=== PATIENT | female | born 1940 | race Caucasian/White ===

== ENCOUNTER 2017-11-12 14:19 | Inpatient (IN) | payer MEDICARE, BC ==
[~2017-11-12] VITALS: Ht 162.6 cm; Wt 54.5 kg
--- NOTE | ~2017-11-12 | PN ---
PATIENT:TIANA ROJO MEDICAL RECORD: [id number] LOCATION:[facility] ADMISSION DATE: 11/12/17 PROGRESS NOTE DATE OF SERVICE: 11/18/2017 SUBJECTIVE: The patient's case was discussed with staff. She has no new complaint. OBJECTIVE: The patient is very anxious. She is visibly trembling when I speak with her. She has limited insight about her condition and is not eating very well. ASSESSMENT: No change in diagnoses. PLAN: I did start the patient on Ativan on a scheduled basis to help with her anxiety yesterday. I do not know that it has had an opportunity to show much affect. I am also going to start her today on some Megace to help with appetite stimulation. TRANSINT:[id number] Voice Confirmation ID: [id number] DOCUMENT ID: [id number] JHOANA HASKINS MD at 0822 CC: [id number] DICTATION DATE: 11/18/17 1153 BITUMINOUS PAVING MACHINE OPERATOR: 11/18/17 1211 ADM IN [place] [id number] [place] [address]
--- NOTE | ~2017-11-12 | PN ---
PATIENT:TIANA ROJO MEDICAL RECORD: [id number] LOCATION:[facility] ADMISSION DATE: 11/12/17 PROGRESS NOTE DATE OF SERVICE: 11/21/2017 SUBJECTIVE: No new complaint. OBJECTIVE: The patient is wandering somewhat less. She is more redirectable. She is tolerating medications without difficulty. On exam, mood is for the most part euthymic. Affect is fairly flat. Speech is terse. Content of thought is negative for overt psychosis. Sensorium shows no change. ASSESSMENT: No change in diagnosis. PLAN: 1. Continue current medication. 2. Continue supportive therapy. TRANSINT:[id number] Voice Confirmation ID: [id number] DOCUMENT ID: [id number] LEON CARDENAS III, MD at 2123 CC: [id number] DICTATION DATE: 11/21/17 1234 WHEAT SHIPPER: 11/21/17 1425 ADM IN [place] [id number] [place] [address]
--- NOTE | ~2017-11-12 | PN ---
PATIENT:TIANA ROJO MEDICAL RECORD: [id number] LOCATION:[facility] [address] ADMISSION DATE: 11/12/17 PROGRESS NOTE DATE OF SERVICE: 11/15/2017 SUBJECTIVE: No new complaint. OBJECTIVE: Staff report the patient remains extremely anxious and paranoid. She has heightened startle response. She attempted to elope last night, but was brought back. She did require p.r.n. of Klonopin twice. She slept less than 1 hour. On exam, mood remains anxious, although the patient is somewhat more subdued. Speech is tangential. Content of thought shows nonspecific paranoid ideation. Sensorium shows no change. ASSESSMENT: No change in diagnosis. PLAN: 1. Begin perphenazine 2 mg twice a day. 2. Continue other current medication. 3. Continue supportive therapy. TRANSINT:[id number] Voice Confirmation ID: [id number] DOCUMENT ID: [id number] LEON CARDENAS III, MD at 0932 CC: [id number] DICTATION DATE: 11/15/17 1109 ASSISTANT WOMEN'S BASKETBALL COACH: 11/15/17 1347 ADM IN [facility] [address] [place] [address]
--- NOTE | ~2017-11-12 | PN ---
PATIENT:TIANA ROJO MEDICAL RECORD: [id number] LOCATION:[facility] ADMISSION DATE: 11/12/17 PROGRESS NOTE DATE OF SERVICE: 11/22/2017 SUBJECTIVE: No new complaint offered. OBJECTIVE: The patient is very pleasant on approach. She continues to socialize fairly well with other patients. She did sleep better last night and is somewhat more cooperative regarding medication. On exam, mood is pleasant. Affect is shallow. Speech is terse. Content of thought is negative for overt psychosis. Sensorium is unchanged. ASSESSMENT: No change in diagnosis. PLAN: 1. Continue current medication. 2. Continue supportive therapy. TRANSINT:[id number] Voice Confirmation ID: [id number] DOCUMENT ID: [id number] LEON CARDENAS III, MD at 2048 CC: [id number] DICTATION DATE: 11/22/17 1141 DELIVERY CREW MEMBER: 11/22/17 1304 ADM IN [place] [address] [place] [address]
--- NOTE | ~2017-11-12 | PN ---
PATIENT:TIANA ROJO MEDICAL RECORD: [id number] LOCATION:[facility] [address] ADMISSION DATE: 11/12/17 PROGRESS NOTE DATE OF SERVICE: 11/20/2017 SUBJECTIVE: No new complaint. OBJECTIVE: The patient has overall been cooperative from time to time. She refuses meds. She is quite confused and does startle easily. On exam, mood anxious. Affect is brittle. Speech is tangential. Content of thought exhibits nonspecific paranoid ideation. Sensorium shows no change. ASSESSMENT: No change in diagnosis. PLAN: 1. Maintain current medication. 2. Continue supportive therapy. TRANSINT:[id number] Voice Confirmation ID: [id number] DOCUMENT ID: [id number] LEON CARDENAS III, MD at 0435 CC: [id number] DICTATION DATE: 11/20/17 1157 RETAIL STOCKER: 11/20/17 1221 ADM IN [place] [id number] [place] [address]
--- NOTE | ~2017-11-12 | DS ---
PATIENT:TIANA ROJO :40 MEDICAL RECORD: [id number] DISCHARGE SUMMARY ADMISSION DATE: 11/12/17 DISCHARGE DATE: 11/29/17 DATE OF ADMISSION: 11/12/2017 DATE OF DISCHARGE: 11/29/2017 HISTORY OF PRESENT ILLNESS: First long term admission for this 77-year-old white female. The patient had been picked up by police. She had wandered away from her home and had claimed that her was trying to harm her. The patient was taken to the Emergency Department at [facility] and then transferred here. The patient had a preexisting diagnosis of dementia. For further details, please see previously dictated history. COURSE IN THE HOSPITAL: The patient was seen in consultation by Dr. Diehl. Dr. Diehl noted the presence of hypertension, hyperlipidemia, and hypothyroidism, a recent urinary tract infection, hyperglycemia and COPD. The patient was treated with lorazepam 0.25 mg t.i.d. for control of anxiety. She was placed on Aricept 10 mg at bedtime for her dementing symptoms. She was also given perphenazine 2 mg b.i.d. to control agitation and psychotic symptoms. Beyond this, she was given supplements of vitamin D and B12. In addition, she was maintained on Tenormin 25 mg daily, levothyroxine 100 mcg daily, aspirin 81 mg daily, and K-Dur 20 mEq daily. Over the course of the hospitalization, the patient showed good improvement. She continued to show evidence of very significant dementia. Her elected to have her return home, but family will be involved in monitoring her. 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 AXIS II: No diagnosis. AXIS III: Hypertension, hyperlipidemia, hypothyroidism, urinary tract infection, and chronic obstructive pulmonary disease. AXIS IV: Moderate. AXIS V: 38. PLAN: 1. The patient is discharged on current medication. 2. The patient's has been strongly cautioned about the patient's sensorium deficits and the need to keep continuous monitoring available. 3. She will follow up with her snuff packing machine operator. TRANSINT:[id number] Voice Confirmation ID: [id number] DOCUMENT ID: [id number] LEON CARDENAS III, MD at 1015 CC: [id number] DICTATION DATE: 11/29/17 1107 BOX MACHINE OPERATOR: 11/30/17 0840 DIS IN 11/29/17 [facility] [address] [facility]901
--- NOTE | ~2017-11-12 | PN ---
PATIENT:TIANA ROJO MEDICAL RECORD: [id number] LOCATION:[facility] Mckeon ADMISSION DATE: 11/12/17 PROGRESS NOTE DATE OF SERVICE: 11/23/2017 SUBJECTIVE: The patient states "I just don't feel right." OBJECTIVE: Overall, the patient is better. She is interacting better with staff and to some extent even with other clients. However, she continues to have a great deal of baseline anxiety and somatization. On exam, mood is anxious. Affect is somewhat brittle. Speech is repetitive. Content of thought focuses on somatic concerns. Sensorium shows no change. ASSESSMENT: No change in diagnosis. PLAN: 1. Continue current medication. 2. Continue supportive therapy. TRANSINT:[id number] Voice Confirmation ID: [id number] DOCUMENT ID: [id number] LEON CARDENAS III, MD at 0948 CC: [id number] DICTATION DATE: 11/23/17 1203 TYPING BOOKKEEPER: 11/23/17 1228 ADM IN [place] [address] [place] [address]
--- NOTE | ~2017-11-12 | PN ---
PATIENT:TIANA ROJO MEDICAL RECORD: [id number] LOCATION:[facility]112 ADMISSION DATE: 11/12/17 PROGRESS NOTE DATE OF SERVICE: 11/27/2017 SUBJECTIVE: No new complaint noted. OBJECTIVE: The patient is doing fairly well. She is tolerating medications. On exam, mood is slightly anxious. Affect is overall bland. Speech is tangential. Content of thought is negative for overt psychosis. Sensorium is unchanged. ASSESSMENT: No change in diagnosis. PLAN: 1. Continue current medication. 2. Continue supportive therapy. TRANSINT:[id number] Voice Confirmation ID: [id number] DOCUMENT ID: [id number] LEON CARDENAS III, MD at 0828 CC: [id number] DICTATION DATE: 11/27/17 1202 SOLAR MANUFACTURER'S REPRESENTATIVE: 11/27/17 1235 ADM IN [place] [id number] [place] [address]
--- NOTE | ~2017-11-12 | PN ---
PATIENT:TIANA ROJO MEDICAL RECORD: [id number] LOCATION:[facility] ADMISSION DATE: 11/12/17 PROGRESS NOTE DATE OF SERVICE: 11/28/2017 SUBJECTIVE: No new complaint. OBJECTIVE: The patient has been occasionally anxious, but overall is doing much better. On exam, mood is slightly anxious. Affect is shallow. Speech is repetitive. Content of thought focuses on somatic concerns. Sensorium does not show change. ASSESSMENT: No change in diagnosis. PLAN: 1. Continue all current medication. 2. Anticipate discharge tomorrow. TRANSINT:[id number] Voice Confirmation ID: [id number] DOCUMENT ID: [id number] LEON CARDENAS III, MD at 1026 CC: [id number] DICTATION DATE: 11/28/17 1107 BOX BLANK MACHINE FEEDER: 11/28/17 1207 ADM IN [place] [address] [place] [address]
--- NOTE | ~2017-11-12 | PN ---
PATIENT:TIANA ROJO MEDICAL RECORD: [id number] LOCATION:[facility] [address] ADMISSION DATE: 11/12/17 PROGRESS NOTE DATE OF SERVICE: 11/17/2017 SUBJECTIVE: The patient's case was discussed with staff. She has no new complaint. OBJECTIVE: The patient denies intent to harm herself or others. She is extremely anxious. She thinks that I am her and wants me to take her home. She earlier today was actively hallucinating children in the hallway. ASSESSMENT: No change in diagnoses. PLAN: Brief supportive and educational interventions were made. Long-term prognosis is guarded. TRANSINT:[id number] Voice Confirmation ID: [id number] DOCUMENT ID: [id number] JHOANA HASKINS MD at 1936 CC: [id number] DICTATION DATE: 11/17/17 1434 NURSERY NURSE: 11/17/17 1500 ADM IN [place] [address] [place] [address]
--- NOTE | ~2017-11-12 | PN ---
PATIENT:TIANA ROJO MEDICAL RECORD: [id number] LOCATION:SOWMYA Mckeon ADMISSION DATE: 11/12/17 PROGRESS NOTE DATE OF SERVICE: 11/16/2017 SUBJECTIVE: No new complaint. OBJECTIVE: The patient did sleep a little bit better last night. She slept 2-1/2 hours. She continues to have episodes of significant anxiety. Eating has improved. On exam, mood is anxious. Affect is shallow. Speech is tangential. Content of thought negative for overt psychosis. Sensorium shows no change. ASSESSMENT: No change in diagnosis. PLAN: 1. Advance Aricept to 10 mg at bedtime. 2. Discontinue Klonopin. 3. Change to p.r.n. Ativan 0.5 mg every four hours as needed. 4. Continue supportive therapy. TRANSINT:[id number] Voice Confirmation ID: [id number] DOCUMENT ID: [id number] LEON CARDENAS III, MD at 0932 CC: [id number] DICTATION DATE: 11/16/17 1059 IMAGING TECH: 11/16/17 1220 ADM IN [facility] [address] [place] [address]
--- NOTE | ~2017-11-12 | PSY ---
PATIENT NAME:TIANA ROJO MEDICAL RECORD: [id number] : 40 LOCATION:WangMAYRA Mckeon3 ADMISSION DATE: 11/12/17 ACCOUNT: [id number] PSYCHIATRIC EVALUATION DATE OF EVALUATION: 11/13/17 IDENTIFYING DATA: This is the first [facility] admission for this 77-year-old white female. HISTORY OF PRESENT ILLNESS: This patient was accepted on transfer from the [facility] Emergency Department. She had been picked up by the police. The patient had wandered outside of her home and had stopped a delivery truck claiming that her was trying to harm her. Law enforcement did investigate and ascertained that there was no history of abuse; however, the patient does have a past history of dementia. The patient has been evidently treated for dementia in the past. She does continue to live with the . The accompanied the patient to [facility] and did request admission. Following the admission, the patient has been for the most part cooperative, but remains quite frightened and exhibits generalized paranoia. PAST MEDICAL HISTORY: Positive for recent urinary tract infection, currently being treated with Keflex 500 mg twice a day. The patient also has a history of hypertension and hypothyroidism. MEDICATIONS AT THE TIME OF ADMISSION: Included K-Dur, Tenormin, aspirin, levothyroxine, Klonopin, and cephalexin. FAMILY HISTORY: Noncontributory. SOCIAL HISTORY: See above. The patient does have family involved in her care. There are no known substance abuse issues. ALLERGIES: None listed. PHYSICAL EXAMINATION: On exam, the patient appears frightened and is occasionally tearful. Affect is somewhat brittle. Speech is tangential. The patient has very frequent word finding pauses and word substitution. Content of thought is positive for paranoid delusional ideation. Sensorium testing reveals the patient is oriented to person, but not as to place nor time. Remote, intermediate, and short-term recall are all impaired. DIAGNOSTIC IMPRESSION: AXIS I: Alzheimer dementia with behavioral disturbance. AXIS II: No diagnosis. AXIS III: Hypothyroidism, hypertension, and urinary tract infection. AXIS IV: Severe. AXIS V: 38. PLAN: 1. The patient is admitted for further medical and psychiatric workup. 2. Diet and activities as tolerated. 3. Coordinate with family regarding aftercare. TRANSINT:[id number] Voice Confirmation ID: [id number] DOCUMENT ID: [id number] LEON CARDENAS III, MD at 0810 CC: [id number] DICTATION DATE: 11/13/17 1158 AERIAL PLANTING AND CULTIVATION MANAGER: 11/13/17 1218 ADM IN [facility] [address] [place] [id number]
--- NOTE | ~2017-11-12 | PN ---
PATIENT:TIANA ROJO MEDICAL RECORD: [id number] LOCATION:SWOMYA [address] ADMISSION DATE: 11/12/17 PROGRESS NOTE DATE OF SERVICE: 11/14/2017 SUBJECTIVE: No coherent complaint. OBJECTIVE: The patient slept only 1 hour last night. She remains extremely confused and delusional. She exhibits paranoid ideation. On exam today, the patient shows a great deal of word searching and latency. Mood is anxious. Affect is shallow. Content of thought as noted above. Sensorium is unchanged. ASSESSMENT: No change in diagnoses. PLAN: 1. Continue current treatment plan. 2. Continue supportive therapy. TRANSINT:[id number] Voice Confirmation ID: [id number] DOCUMENT ID: [id number] LEON CARDENAS III, MD at 0601 CC: [id number] DICTATION DATE: 11/14/17 1105 DOCTOR OF AUDIOLOGY: 11/14/17 1221 ADM IN [place] [id number] [place] [address]
--- NOTE | ~2017-11-12 | PN ---
PATIENT:TIANA ROJO MEDICAL RECORD: [id number] LOCATION:SOWMYA Pi[facility]ildred112 ADMISSION DATE: 11/12/17 PROGRESS NOTE DATE OF SERVICE: 11/24/2017 SUBJECTIVE: No new complaint. OBJECTIVE: The patient had a good family visit yesterday, although she did become tearful. Family is in the process of developing alternative plans for aftercare. She may well be directed toward either assisted living or shelter. On exam, mood is for the most part euthymic, although slightly anxious at times. Affect is childlike. Speech tends to be repetitive. Content of thought is focused mainly on vague nonspecific fears about the future. Sensorium shows no change. ASSESSMENT: No change in diagnosis. PLAN: 1. Maintain current medication. 2. Continue supportive therapy. TRANSINT:[id number] Voice Confirmation ID: [id number] DOCUMENT ID: [id number] LEON CARDENAS III, MD at 0535 CC: [id number] DICTATION DATE: 11/24/17 1119 WHOLESALE LOAN PROCESSOR: 11/24/17 1324 ADM IN [place] [address] [place] [id number]
[2017-11-12 19:47] VITALS: BP 128/78
[2017-11-13] MEDS ORDERED: KEFLEX500 MG PO (00:44)
[2017-11-13] MEDS ORDERED: KLONOPIN0.5 MG PO (00:45)
[2017-11-13] MEDS ORDERED: K-DUR20 MEQ PO (00:46)
[2017-11-13] MEDS ORDERED: SYNTHROID100 MCG PO (00:47)
[2017-11-13] MEDS ORDERED: BAYER CHEWABLE81 MG PO (00:48)
[2017-11-13] MEDS ORDERED: TENORMIN25 MG PO (00:50)
[2017-11-13 05:19] VITALS: BP 128/78
[2017-11-13 05:58] LABS: BASOPHILS 0.6 % (0-2); EOSINOPHILS 2.8 % (0-7); HEMATOCRIT 46.9 % (36.0-48.0); HEMOGLOBIN 15.4 g/dL (12-16); IMMATURE GRANULOCYTES 0.1 % (0-5); LYMPHOCYTES 29.2 % (15-50); MCHC 32.8 g/dL (31.0-37.0); MCV 85.3 fL (80.0-100.0); MEAN PLATELET VOLUME 11.1 fL (7.4-10.4); MONOCYTES 8.9 % (2-11); NEUTROPHILS 58.4 % (40-80); PLATELET COUNT 166 10x3/uL (130-400); RDW 13.5 % (11.5-14.5); WBC 6.7 10x3/uL (4.8-10.8)
[2017-11-13 07:00] VITALS: BP 148/73
[2017-11-13 07:01] LABS: ALBUMIN 3.7 g/dL (3.4-5.0); ANION GAP 15.3 mmol/L (8-16); BILIRUBIN - TOTAL 1.27 mg/dL (0.2-1.3); CALCIUM 9.1 mg/dL (8.5-10.1); CARBON DIOXIDE 24.8 mmol/L (21.0-32.0); CHOL - HDL RATIO 3.8 ratio (2.3-4.1); CREATININE - SERUM 0.8 mg/dL (0.6-1.3); LDL-HDL RATIO 2.3 ratio (1.5-3.5); POTASSIUM - SERUM 4.1 mmol/L (3.5-5.1); PROTEIN - SERUM 7.7 g/dL (6.4-8.2); THYROID STIMULATING HORMONE 0.06 uIU/mL (0.36-3.74)
[2017-11-13 14:53] LABS: APPEARANCE SLT CLOUDY (CLEAR); BILIRUBIN NEGATIVE (NEGATIVE); COLOR YELLOW (YELLOW); GLUCOSE NEGATIVE (NEGATIVE); KETONE NEGATIVE (NEGATIVE); NITRITE NEGATIVE (NEGATIVE); PROTEIN NEGATIVE (NEGATIVE); SPECIFIC GRAVITY 1.015 (1.005-1.020); UROBILINOGEN NORMAL (NORMAL)
[2017-11-13 14:56] LABS: BACTERIA MODERATE /hpf (NONE SEEN); EPITHELIAL CELLS 0-5 /hpf (0-5); RED CELLS - URINE 0-5 /hpf (0-5)
[2017-11-13 16:34] VITALS: BMI 20.6
[2017-11-13 19:46] VITALS: BP 145/76
[2017-11-14 08:20] LABS: ANION GAP 14.9 mmol/L (8-16); CALCIUM 9.1 mg/dL (8.5-10.1); CARBON DIOXIDE 25.8 mmol/L (21.0-32.0); CREATININE - SERUM 0.8 mg/dL (0.6-1.3); POTASSIUM - SERUM 3.7 mmol/L (3.5-5.1)
[2017-11-14 08:23] LABS: FOLATE (FOLIC ACID) - SERUM 10.8 ng/mL (>3.0); RAPID PLASMA REAGIN Non Reactive (Non Reactive); VITAMIN D 25 HYDROXY 11.4 ng/mL (30.0-100.0)
[2017-11-14 09:24] VITALS: BP 106/54
[2017-11-14 19:21] VITALS: BP 146/85
[2017-11-15 08:01] VITALS: BP 175/79
[2017-11-15 14:21] VITALS: Ht 162.6 cm; Wt 54.5 kg
[2017-11-15 20:17] VITALS: BP 165/61
[2017-11-16 09:57] VITALS: BP 140/68
[2017-11-16 20:33] VITALS: BP 130/68
[2017-11-17 07:50] VITALS: BP 141/65
[2017-11-17 20:17] VITALS: BP 181/80
[2017-11-18 07:44] VITALS: BP 139/100
[2017-11-18 19:56] VITALS: BP 131/90
[2017-11-19 07:23] VITALS: BP 158/81
[2017-11-19 19:55] VITALS: BP 169/74
[2017-11-20 07:00] VITALS: BP 144/86
[2017-11-20 21:02] VITALS: BP 156/83
[2017-11-21 07:49] VITALS: BP 151/76
[2017-11-21 20:25] VITALS: BP 146/72
[2017-11-22 09:30] VITALS: BP 150/78
[2017-11-22 20:02] VITALS: BP 136/90
[2017-11-23 08:03] VITALS: BP 154/71
[2017-11-23 20:17] VITALS: BP 152/70
[2017-11-24 08:12] VITALS: BP 132/82
[2017-11-24 20:35] VITALS: BP 128/78
[2017-11-25 09:35] VITALS: BP 92/72
[2017-11-25 20:50] VITALS: BP 154/91
[2017-11-26 08:49] VITALS: BP 134/77
[2017-11-26 20:15] VITALS: BP 150/78
[2017-11-27 09:32] VITALS: BP 135/73
[2017-11-27 20:32] VITALS: BP 152/59
[2017-11-28 08:26] VITALS: BP 140/74
[2017-11-28] MEDS ORDERED: ARICEPT10 MG PO (11:03)
[2017-11-28] MEDS ORDERED: ATIVAN0.5 MG PO (11:04)
[2017-11-28] MEDS ORDERED: PERPHENAZINE2 MG PO (11:05)
[2017-11-28] MEDS ORDERED: VITAMIN B-12500 MC1 PO (11:05)
[2017-11-28 20:21] VITALS: BP 130/65
[2017-11-29 09:33] VITALS: BP 122/75
== END 2017-11-29 11:11 | disposition home or self-care (01) | DRG 57 ==
LOC: D.PSYCH 14:19
PROVIDERS: Family Medicine; Psychiatry & Neurology Psychiatry
DX: G30.9 Alzheimer's disease, unspecified (principal); F02.81 Dementia in other diseases classified elsewhere, unspecified severity, with behavioral disturbance; N39.0 Urinary tract infection, site not specified; I10 Essential (primary) hypertension; E78.5 Hyperlipidemia, unspecified; E03.9 Hypothyroidism, unspecified; B96.89 Other specified bacterial agents as the cause of diseases classified elsewhere; J44.9 Chronic obstructive pulmonary disease, unspecified; K52.9 Noninfective gastroenteritis and colitis, unspecified; E55.9 Vitamin D deficiency, unspecified; E53.8 Deficiency of other specified B group vitamins; E11.65 Type 2 diabetes mellitus with hyperglycemia

== ENCOUNTER 2017-12-05 19:06 | Emergency (ER) | payer MEDICARE, BC ==
[2017-11-15 14:21] VITALS: BMI 20.6
[~2017-12-05 19:06] MED LIST: ARICEPT10 MG PO; ATIVAN0.5 MG PO; BAYER CHEWABLE81 MG PO; K-DUR20 MEQ PO; KEFLEX500 MG PO; KLONOPIN0.5 MG PO; PERPHENAZINE2 MG PO; SYNTHROID100 MCG PO; TENORMIN25 MG PO; VITAMIN B-12500 MC1 PO
[2017-12-05 20:09] LABS: BASOPHILS 0.3 % (0-2); EOSINOPHILS 0.4 % (0-7); HEMATOCRIT 44.4 % (36.0-48.0); HEMOGLOBIN 15.3 g/dL (12-16); IMMATURE GRANULOCYTES 0.1 % (0-5); LYMPHOCYTES 30.2 % (15-50); MCH 27.8 pg (26.0-34.0); MCHC 34.5 g/dL (31.0-37.0); MCV 80.7 fL (80.0-100.0); MEAN PLATELET VOLUME 10.7 fL (7.4-10.4); MONOCYTES 9.1 % (2-11); NEUTROPHILS 59.9 % (40-80); RDW 13.5 % (11.5-14.5); WBC 10.9 10x3/uL (4.8-10.8)
[2017-12-05 20:10] LABS: PLATELET COUNT 303 10x3/uL (130-400)
[2017-12-05 20:28] LABS: ALBUMIN 4.2 g/dL (3.4-5.0); ANION GAP 17.5 mmol/L (8-16); BILIRUBIN - TOTAL 1.01 mg/dL (0.2-1.3); CALCIUM 9.5 mg/dL (8.5-10.1); CARBON DIOXIDE 22.9 mmol/L (21.0-32.0); POTASSIUM - SERUM 3.4 mmol/L (3.5-5.1); PROTEIN - SERUM 7.9 g/dL (6.4-8.2)
== END 2017-12-05 23:18 | disposition home or self-care (01) ==
LOC: D.ER 19:06
PROVIDERS: Family Medicine
DX: R10.9 Unspecified abdominal pain (principal); N81.10 Cystocele, unspecified; I10 Essential (primary) hypertension; G30.9 Alzheimer's disease, unspecified; F02.80 Dementia in other diseases classified elsewhere, unspecified severity, without behavioral disturbance, psychotic disturbance, mood disturbance, and anxiety; E20.9 Hypoparathyroidism, unspecified